=== PATIENT | male | born 1970 | race Caucasian/White ===

== ENCOUNTER 2020-11-02 18:13 | Inpatient (IN) | payer MEDICAID ==
[~2020-11-02] VITALS: Ht 172.7 cm; Wt 88.9 kg
[2020-11-03 02:35] VITALS: BP 150/92
[2020-11-03] MEDS ORDERED: LORazepam 2 MG TABLET PO PRN (04:00)
[2020-11-03] MEDS ORDERED: OLANZapine 5 MG RAPDIS TABLET PO PRN (04:00)
[2020-11-03] MEDS ORDERED: ZOLPIDEM TARTRATE 10 MG TABLET PO PRN (04:00)
[2020-11-03 06:24] VITALS: BP 143/89
[2020-11-03] MEDS ORDERED: INDOMETHACIN 50 MG CAPSULE PO PRN (07:00)
[2020-11-03 07:10] VITALS: BP 142/88
[2020-11-03] MEDS: INDOMETHACIN 50 MG CAPSULE PO PRN ×2 (07:10→17:58)
[2020-11-03 08:12] VITALS: BP 140/99
[2020-11-03] MEDS ORDERED: ACETAMINOPHEN 500 MG TABLET PO PRN (09:45)
[2020-11-03] MEDS ORDERED: LOPERAMIDE HCL 2 MG CAPSULE PO PRN (12:15)
[2020-11-03] MEDS ORDERED: TUBERCULIN, PURIFIED PROTEIN DERIVATIVE 5 TU/0.1 ML SYRINGE ID ONE (12:15)
[2020-11-03] MEDS ORDERED: MAG HYDROX/AL HYDROX/SIMETH ES 30 ML SUSPENSION UDCUP PO PRN (12:15)
[2020-11-03] MEDS ORDERED: MAGNESIUM HYDROXIDE SUSPENSION 30 ML UDCUP PO PRN (12:15)
[2020-11-03] MEDS ORDERED: HydrOXYzine PAMOATE 50 MG CAPSULE PO PRN (12:15)
[2020-11-03] MEDS ORDERED: GuaiFENesin/D-METHORPHAN [SUGAR-FREE] 200-20MG/10 ML SYRUP UDCUP PO PRN (12:15)
[2020-11-03 16:00] VITALS: BP 128/72
[2020-11-03 16:46] VITALS: BP 128/72
[2020-11-03] MEDS: THIAMINE 100 MG TABLET PO SCH (17:58)
[2020-11-03] MEDS ORDERED: QUEtiapine FUMARATE 100 MG TABLET PO PRN (19:15)
[2020-11-03] MEDS ORDERED: OLANZapine 5 MG RAPDIS TABLET PO SCH (21:00)
[2020-11-03] MEDS ORDERED: QUEtiapine FUMARATE 200 MG TABLET PO SCH (21:00)
[2020-11-03] MEDS: DIVALPROEX SODIUM 500 MG ER TABLET PO SCH (21:30)
[2020-11-03] MEDS: MELATONIN 5 MG TABLET PO SCH (21:30)
[2020-11-04 07:16] LABS: BASOPHILS % (AUTO) 0.5 % (0.0-2.0); EOSINOPHILS % (AUTO) 1.5 % (1.0-6.0); HEMATOCRIT 37.9 % (41-53); HEMOGLOBIN 12.8 g/dL (13.5-17.5); LYMPHOCYTES # (AUTO) 1.5 K/uL (1.0-4.8); LYMPHOCYTES % (AUTO) 30.6 % (22.0-44.0); MEAN CORPUSCULAR HEMOGLOBIN 30.8 pg (26.0-34.0); MEAN CORPUSCULAR HGB CONC 33.8 G/dL (31.0-37.0); MEAN CORPUSCULAR VOLUME 91 fL (80-100); MONOCYTES # (AUTO) 0.4 K/uL (0.1-1.0); MONOCYTES % (AUTO) 7.9 % (2.0-9.0); NEUTROPHILS # (AUTO) 2.9 K/uL (1.8-7.7); NEUTROPHILS % (AUTO) 59.5 % (40.0-70.0); PLATELET COUNT (AUTO) 125 K/uL (150-450); RED BLOOD CELL COUNT(AUTO) 4.17 MIL/uL (4.50-5.90); RED CELL DISTRIBUTION WIDTH 12.7 % (11.5-14.5)
[2020-11-04 07:18] LABS: HEMOGLOBIN A1C 5.9 % (3.8-5.6)
[2020-11-04 07:26] LABS: ANION GAP 7 mmol/L (8-16); CARBON DIOXIDE 29 mmol/L (22-29); CHLORIDE 104 mmol/L (98-107); POTASSIUM 3.9 mmol/L (3.5-5.1); SODIUM SERUM 140 mmol/L (136-145)
[2020-11-04 07:27] LABS: ALANINE AMINOTRANSFERASE 21 U/L (12-78); ALBUMIN 3.2 g/dL (3.4-5.0); ALKALINE PHOSPHATASE 74 U/L (46-116); ASPARTATE AMINOTRANSFERASE 8 U/L (15-37); BILIRUBIN,TOTAL 0.4 mg/dL (0.1-1.0); CALCIUM, TOTAL 8.2 mg/dL (8.8-10.5); CHOL/HDL RATIO 4.4 (4.2-7.3); CREATININE 0.93 mg/dL (0.60-1.30); FREE T4 (FREE THYROXINE) 1.46 ng/dL (0.76-1.46); GLOMERULAR FILTR. RATE CALC > 60 mL/min (>60); GLUCOSE,RANDOM 124 mg/dL (70-110); TOTAL PROTEIN, SERUM 6.7 g/dL (6.4-8.2); UREA NITROGEN, BLOOD 16 mg/dL (7-18)
[2020-11-04 08:13] LABS: CHOL/HDL RATIO 4.3 (4.2-7.3); THYROID STIMULATING HORMONE 0.47 uIU/mL (0.36-3.74)
[2020-11-04 08:22] LABS: URIC ACID 7.1 mg/dL (2.6-7.2)
[2020-11-04] MEDS: MULTIVITAMINS WITH MINERALS, THERAPEUTIC TABLET PO SCH (08:29)
[2020-11-04] MEDS: OMEGA-3/DHA/EPA/FISH OIL 1,000 MG CAPSULE PO SCH (08:29)
[2020-11-04] MEDS: FOLIC ACID 1 MG TABLET PO SCH (08:29)
[2020-11-04] MEDS: FLUoxetine HCL 20 MG CAPSULE PO SCH (08:29)
[2020-11-04] MEDS: THIAMINE 100 MG TABLET PO SCH ×2 (08:29→16:49)
[2020-11-04] MEDS: NALTREXONE HCL 50 MG TABLET PO SCH (08:29)
[2020-11-04 08:49] VITALS: BP 133/79
[2020-11-04 08:50] VITALS: BP 133/79
[2020-11-04] MEDS: INDOMETHACIN 50 MG CAPSULE PO PRN (08:54)
[2020-11-04 09:50] VITALS: BP 131/86
[2020-11-04] MEDS: ALLOPURINOL 100 MG TABLET PO SCH (13:28)
[2020-11-04 16:34] VITALS: BP 143/102
[2020-11-04] MEDS: DIVALPROEX SODIUM 500 MG ER TABLET PO SCH (20:59)
[2020-11-04] MEDS: MELATONIN 5 MG TABLET PO SCH (20:59)
[2020-11-04] MEDS ORDERED: QUEtiapine FUMARATE 200 MG TABLET PO SCH (21:00)
[2020-11-05] MEDS: FOLIC ACID 1 MG TABLET PO SCH (08:08)
[2020-11-05] MEDS: OMEGA-3/DHA/EPA/FISH OIL 1,000 MG CAPSULE PO SCH (08:08)
[2020-11-05] MEDS: THIAMINE 100 MG TABLET PO SCH ×2 (08:08→16:19)
[2020-11-05] MEDS: NALTREXONE HCL 50 MG TABLET PO SCH (08:08)
[2020-11-05] MEDS: ALLOPURINOL 100 MG TABLET PO SCH (08:08)
[2020-11-05] MEDS: FLUoxetine HCL 20 MG CAPSULE PO SCH (08:08)
[2020-11-05] MEDS: MULTIVITAMINS WITH MINERALS, THERAPEUTIC TABLET PO SCH (08:08)
[2020-11-05 08:51] VITALS: BP 140/99
[2020-11-05] MEDS ORDERED: CloNIDine HCL 0.1 MG TABLET PO PRN (12:45)
[2020-11-05 16:00] VITALS: BP 152/96
[2020-11-05] MEDS: DIVALPROEX SODIUM 500 MG ER TABLET PO SCH (20:29)
[2020-11-05] MEDS: MELATONIN 5 MG TABLET PO SCH (20:29)
[2020-11-05] MEDS ORDERED: QUEtiapine FUMARATE 300 MG TABLET PO SCH (21:00)
[2020-11-05] MEDS: ACETAMINOPHEN 325 MG TABLET PO PRN (22:36)
[2020-11-06] MEDS: OMEGA-3/DHA/EPA/FISH OIL 1,000 MG CAPSULE PO SCH (09:29)
[2020-11-06] MEDS: THIAMINE 100 MG TABLET PO SCH ×2 (09:30→17:06)
[2020-11-06] MEDS: ALLOPURINOL 100 MG TABLET PO SCH (09:30)
[2020-11-06] MEDS: NALTREXONE HCL 50 MG TABLET PO SCH (09:30)
[2020-11-06] MEDS: FOLIC ACID 1 MG TABLET PO SCH (09:30)
[2020-11-06] MEDS: FLUoxetine HCL 20 MG CAPSULE PO SCH (09:30)
[2020-11-06] MEDS: MULTIVITAMINS WITH MINERALS, THERAPEUTIC TABLET PO SCH (09:30)
[2020-11-06 16:46] VITALS: BP 144/84
[2020-11-06] MEDS: DIVALPROEX SODIUM 500 MG ER TABLET PO SCH (20:53)
[2020-11-06] MEDS: MELATONIN 5 MG TABLET PO SCH (20:54)
[2020-11-06] MEDS: QUEtiapine FUMARATE 200 MG TABLET PO SCH (20:54)
[2020-11-07] MEDS: THIAMINE 100 MG TABLET PO SCH ×2 (09:21→17:05)
[2020-11-07] MEDS: FOLIC ACID 1 MG TABLET PO SCH (09:21)
[2020-11-07] MEDS: OMEGA-3/DHA/EPA/FISH OIL 1,000 MG CAPSULE PO SCH (09:21)
[2020-11-07] MEDS: FLUoxetine HCL 20 MG CAPSULE PO SCH (09:22)
[2020-11-07] MEDS: MULTIVITAMINS WITH MINERALS, THERAPEUTIC TABLET PO SCH (09:22)
[2020-11-07] MEDS: NALTREXONE HCL 50 MG TABLET PO SCH (09:22)
[2020-11-07] MEDS: ALLOPURINOL 100 MG TABLET PO SCH (09:23)
[2020-11-07 16:15] VITALS: BP 140/93
[2020-11-07] MEDS: MELATONIN 5 MG TABLET PO SCH (20:22)
[2020-11-07] MEDS: DIVALPROEX SODIUM 500 MG ER TABLET PO SCH (21:24)
[2020-11-07] MEDS: QUEtiapine FUMARATE 200 MG TABLET PO SCH (21:24)
[2020-11-08 08:37] LABS: COVID AG,FIA SOURCE NASOPHARYNGEAL
[2020-11-08] MEDS: NALTREXONE HCL 50 MG TABLET PO SCH (09:00)
[2020-11-08] MEDS: OMEGA-3/DHA/EPA/FISH OIL 1,000 MG CAPSULE PO SCH (09:00)
[2020-11-08] MEDS: FOLIC ACID 1 MG TABLET PO SCH (09:01)
[2020-11-08] MEDS: THIAMINE 100 MG TABLET PO SCH ×2 (09:01→16:19)
[2020-11-08] MEDS: FLUoxetine HCL 20 MG CAPSULE PO SCH (09:01)
[2020-11-08] MEDS: MULTIVITAMINS WITH MINERALS, THERAPEUTIC TABLET PO SCH (09:01)
[2020-11-08] MEDS: ALLOPURINOL 100 MG TABLET PO SCH (09:02)
[2020-11-08 09:14] VITALS: BP 143/90
[2020-11-08 16:00] VITALS: BP 141/88
[2020-11-08] MEDS ORDERED: ChlorproMAZINE HCL 100 MG TABLET PO PRN (18:00)
[2020-11-08] MEDS: QUEtiapine FUMARATE 200 MG TABLET PO SCH (20:30)
[2020-11-08] MEDS: MELATONIN 5 MG TABLET PO SCH (20:30)
[2020-11-08] MEDS: DIVALPROEX SODIUM 500 MG ER TABLET PO SCH (20:30)
[2020-11-09] MEDS: FLUoxetine HCL 20 MG CAPSULE PO SCH (08:11)
[2020-11-09] MEDS: FOLIC ACID 1 MG TABLET PO SCH (08:11)
[2020-11-09] MEDS: OMEGA-3/DHA/EPA/FISH OIL 1,000 MG CAPSULE PO SCH (08:11)
[2020-11-09] MEDS: NALTREXONE HCL 50 MG TABLET PO SCH (08:11)
[2020-11-09] MEDS: THIAMINE 100 MG TABLET PO SCH ×2 (08:11→16:11)
[2020-11-09] MEDS: MULTIVITAMINS WITH MINERALS, THERAPEUTIC TABLET PO SCH (08:11)
[2020-11-09] MEDS: ALLOPURINOL 100 MG TABLET PO SCH (08:11)
[2020-11-09 20:00] VITALS: BP 154/104
[2020-11-09] MEDS: DIVALPROEX SODIUM 500 MG ER TABLET PO SCH (20:10)
[2020-11-09] MEDS: QUEtiapine FUMARATE 200 MG TABLET PO SCH (20:10)
[2020-11-09] MEDS: MELATONIN 5 MG TABLET PO SCH (20:17)
[2020-11-09] MEDS: CloNIDine HCL 0.1 MG TABLET PO PRN (20:19)
[2020-11-10] MEDS: FLUoxetine HCL 20 MG CAPSULE PO SCH (07:52)
[2020-11-10] MEDS: FOLIC ACID 1 MG TABLET PO SCH (07:52)
[2020-11-10] MEDS: ALLOPURINOL 100 MG TABLET PO SCH (07:52)
[2020-11-10] MEDS: AmLODIPine BESYLATE 2.5 MG TABLET PO SCH (07:52)
[2020-11-10] MEDS: OMEGA-3/DHA/EPA/FISH OIL 1,000 MG CAPSULE PO SCH (07:52)
[2020-11-10] MEDS: THIAMINE 100 MG TABLET PO SCH ×2 (07:52→17:40)
[2020-11-10] MEDS: NALTREXONE HCL 50 MG TABLET PO SCH (07:52)
[2020-11-10] MEDS: MULTIVITAMINS WITH MINERALS, THERAPEUTIC TABLET PO SCH (07:52)
[2020-11-10 09:00] VITALS: BP 132/87
[2020-11-10] MEDS: ACETAMINOPHEN 325 MG TABLET PO PRN (11:29)
[2020-11-10 16:05] VITALS: BP 143/90
[2020-11-10] MEDS: QUEtiapine FUMARATE 100 MG TABLET PO PRN (20:23)
[2020-11-10] MEDS: MELATONIN 5 MG TABLET PO SCH (20:23)
[2020-11-10] MEDS: DIVALPROEX SODIUM 500 MG ER TABLET PO SCH (20:23)
[2020-11-10] MEDS: QUEtiapine FUMARATE 200 MG TABLET PO SCH (21:37)
[2020-11-11 08:13] VITALS: BP 145/75
[2020-11-11] MEDS: FLUoxetine HCL 20 MG CAPSULE PO SCH (08:46)
[2020-11-11] MEDS: MULTIVITAMINS WITH MINERALS, THERAPEUTIC TABLET PO SCH (08:46)
[2020-11-11] MEDS: AmLODIPine BESYLATE 2.5 MG TABLET PO SCH (08:46)
[2020-11-11] MEDS: FOLIC ACID 1 MG TABLET PO SCH (08:46)
[2020-11-11] MEDS: THIAMINE 100 MG TABLET PO SCH ×2 (08:46→16:38)
[2020-11-11] MEDS: NALTREXONE HCL 50 MG TABLET PO SCH (08:46)
[2020-11-11] MEDS: ALLOPURINOL 100 MG TABLET PO SCH (08:46)
[2020-11-11] MEDS: OMEGA-3/DHA/EPA/FISH OIL 1,000 MG CAPSULE PO SCH (08:46)
[2020-11-11 19:43] VITALS: BP 143/92
[2020-11-11] MEDS: INDOMETHACIN 50 MG CAPSULE PO PRN (19:46)
[2020-11-11] MEDS: MELATONIN 5 MG TABLET PO SCH (20:41)
[2020-11-11] MEDS: QUEtiapine FUMARATE 200 MG TABLET PO SCH (20:41)
[2020-11-11] MEDS: DIVALPROEX SODIUM 500 MG ER TABLET PO SCH (20:41)
[2020-11-12 08:00] VITALS: BP 106/73
[2020-11-12] MEDS: MULTIVITAMINS WITH MINERALS, THERAPEUTIC TABLET PO SCH (09:42)
[2020-11-12] MEDS: OMEGA-3/DHA/EPA/FISH OIL 1,000 MG CAPSULE PO SCH (09:42)
[2020-11-12] MEDS: AmLODIPine BESYLATE 2.5 MG TABLET PO SCH (09:42)
[2020-11-12] MEDS: FLUoxetine HCL 20 MG CAPSULE PO SCH (09:42)
[2020-11-12] MEDS: THIAMINE 100 MG TABLET PO SCH ×2 (09:42→16:41)
[2020-11-12] MEDS: NALTREXONE HCL 50 MG TABLET PO SCH (09:42)
[2020-11-12] MEDS: FOLIC ACID 1 MG TABLET PO SCH (09:42)
[2020-11-12] MEDS: ALLOPURINOL 100 MG TABLET PO SCH (09:42)
[2020-11-12 16:35] VITALS: BP 135/87
[2020-11-12] MEDS: DIVALPROEX SODIUM 500 MG ER TABLET PO SCH (20:00)
[2020-11-12] MEDS: MELATONIN 5 MG TABLET PO SCH (20:01)
[2020-11-12] MEDS: QUEtiapine FUMARATE 200 MG TABLET PO SCH (22:47)
[2020-11-13] MEDS: MULTIVITAMINS WITH MINERALS, THERAPEUTIC TABLET PO SCH (09:10)
[2020-11-13] MEDS: NALTREXONE HCL 50 MG TABLET PO SCH (09:10)
[2020-11-13] MEDS: ALLOPURINOL 100 MG TABLET PO SCH (09:10)
[2020-11-13] MEDS: OMEGA-3/DHA/EPA/FISH OIL 1,000 MG CAPSULE PO SCH (09:10)
[2020-11-13] MEDS: AmLODIPine BESYLATE 2.5 MG TABLET PO SCH (09:10)
[2020-11-13] MEDS: FOLIC ACID 1 MG TABLET PO SCH (09:10)
[2020-11-13] MEDS: THIAMINE 100 MG TABLET PO SCH (09:10)
[2020-11-13] MEDS: FLUoxetine HCL 20 MG CAPSULE PO SCH (09:10)
[2020-11-13 12:39] VITALS: BP 145/88
[2020-11-13 16:19] VITALS: BP 142/82
[2020-11-13] MEDS: QUEtiapine FUMARATE 100 MG TABLET PO PRN (20:10)
[2020-11-13] MEDS: MELATONIN 5 MG TABLET PO SCH (20:10)
[2020-11-13] MEDS: DIVALPROEX SODIUM 500 MG ER TABLET PO SCH (20:10)
[2020-11-13] MEDS: QUEtiapine FUMARATE 200 MG TABLET PO SCH (21:45)
[2020-11-14] MEDS: AmLODIPine BESYLATE 2.5 MG TABLET PO SCH (09:07)
[2020-11-14] MEDS: MULTIVITAMINS WITH MINERALS, THERAPEUTIC TABLET PO SCH (09:07)
[2020-11-14] MEDS: NALTREXONE HCL 50 MG TABLET PO SCH (09:07)
[2020-11-14] MEDS: OMEGA-3/DHA/EPA/FISH OIL 1,000 MG CAPSULE PO SCH (09:07)
[2020-11-14] MEDS: ALLOPURINOL 100 MG TABLET PO SCH (09:08)
[2020-11-14] MEDS: FLUoxetine HCL 20 MG CAPSULE PO SCH (09:08)
[2020-11-14 09:58] VITALS: BP 145/103
[2020-11-14] MEDS: CloNIDine HCL 0.1 MG TABLET PO PRN (10:00)
[2020-11-14 11:31] VITALS: BP 132/94
[2020-11-14 16:21] VITALS: BP 140/96
[2020-11-14] MEDS: DIVALPROEX SODIUM 500 MG ER TABLET PO SCH (20:50)
[2020-11-14] MEDS: MELATONIN 5 MG TABLET PO SCH (20:50)
[2020-11-14] MEDS: QUEtiapine FUMARATE 200 MG TABLET PO SCH (20:50)
[2020-11-15] MEDS: OMEGA-3/DHA/EPA/FISH OIL 1,000 MG CAPSULE PO SCH (08:04)
[2020-11-15] MEDS: MULTIVITAMINS WITH MINERALS, THERAPEUTIC TABLET PO SCH (08:04)
[2020-11-15] MEDS: ALLOPURINOL 100 MG TABLET PO SCH (08:04)
[2020-11-15] MEDS: FLUoxetine HCL 20 MG CAPSULE PO SCH (08:04)
[2020-11-15] MEDS: AmLODIPine BESYLATE 2.5 MG TABLET PO SCH (08:04)
[2020-11-15] MEDS: NALTREXONE HCL 50 MG TABLET PO SCH (08:04)
[2020-11-15 08:49] VITALS: BP 127/94
[2020-11-15 12:38] LABS: COVID AG,FIA SOURCE NASOPHARYNGEAL
[2020-11-15 16:43] VITALS: BP 143/83
[2020-11-15] MEDS: DIVALPROEX SODIUM 500 MG ER TABLET PO SCH (20:29)
[2020-11-15] MEDS: QUEtiapine FUMARATE 200 MG TABLET PO SCH (20:29)
[2020-11-15] MEDS: MELATONIN 5 MG TABLET PO SCH (20:29)
[2020-11-16 06:51] VITALS: BP 138/91
[2020-11-16 07:01] LABS: BASOPHILS % (AUTO) 0.6 % (0.0-2.0); EOSINOPHILS % (AUTO) 2.5 % (1.0-6.0); HEMATOCRIT 38.6 % (41-53); HEMOGLOBIN 13.2 g/dL (13.5-17.5); LYMPHOCYTES # (AUTO) 1.7 K/uL (1.0-4.8); LYMPHOCYTES % (AUTO) 44.5 % (22.0-44.0); MEAN CORPUSCULAR HEMOGLOBIN 30.5 pg (26.0-34.0); MEAN CORPUSCULAR HGB CONC 34.2 G/dL (31.0-37.0); MEAN CORPUSCULAR VOLUME 89 fL (80-100); MONOCYTES # (AUTO) 0.3 K/uL (0.1-1.0); MONOCYTES % (AUTO) 7.6 % (2.0-9.0); NEUTROPHILS # (AUTO) 1.7 K/uL (1.8-7.7); NEUTROPHILS % (AUTO) 44.8 % (40.0-70.0); PLATELET COUNT (AUTO) 102 K/uL (150-450); RED BLOOD CELL COUNT(AUTO) 4.33 MIL/uL (4.50-5.90); RED CELL DISTRIBUTION WIDTH 12.5 % (11.5-14.5)
[2020-11-16 07:15] LABS: ALANINE AMINOTRANSFERASE 14 U/L (12-78); ALBUMIN 3.3 g/dL (3.4-5.0); ALKALINE PHOSPHATASE 66 U/L (46-116); ASPARTATE AMINOTRANSFERASE 7 U/L (15-37); BILIRUBIN,TOTAL 0.2 mg/dL (0.1-1.0); TOTAL PROTEIN, SERUM 6.5 g/dL (6.4-8.2); VALPROIC ACID 77 mcg/mL (50-100)
[2020-11-16 07:26] LABS: BILIRUBIN,DIRECT < 0.05 mg/dL (0.00-0.20)
[2020-11-16] MEDS: AmLODIPine BESYLATE 2.5 MG TABLET PO SCH (08:06)
[2020-11-16] MEDS: ALLOPURINOL 100 MG TABLET PO SCH (08:06)
[2020-11-16] MEDS: OMEGA-3/DHA/EPA/FISH OIL 1,000 MG CAPSULE PO SCH (08:06)
[2020-11-16] MEDS: FLUoxetine HCL 20 MG CAPSULE PO SCH (08:06)
[2020-11-16] MEDS: MULTIVITAMINS WITH MINERALS, THERAPEUTIC TABLET PO SCH (08:06)
[2020-11-16] MEDS: NALTREXONE HCL 50 MG TABLET PO SCH (08:06)
[2020-11-16 08:19] VITALS: BP 122/80
[2020-11-16] MEDS ORDERED: DIVA-80 PO (09:16)
[2020-11-16] MEDS ORDERED: NALT50TA PO (09:16)
[2020-11-16] MEDS ORDERED: OMEG-135 PO (09:16)
[2020-11-16] MEDS ORDERED: FLUO20CA36 PO (09:16)
[2020-11-16] MEDS ORDERED: MELA5TAB3 PO (09:16)
[2020-11-16] MEDS ORDERED: QUET200T29 PO (09:16)
[2020-11-16] MEDS ORDERED: ALLO100T2 PO (09:38)
[2020-11-16] MEDS ORDERED: AMLO2.5T96 PO (09:39)
== END 2020-11-16 10:15 | disposition home or self-care (01) | DRG 750 ==
LOC: 3EI 11-03 00:45
PROVIDERS: ADMIT Psychiatry & Neurology Psychiatry; ATTEND Psychiatry & Neurology Psychiatry
DX: F25.9 Schizoaffective disorder, unspecified (principal); E11.9 Type 2 diabetes mellitus without complications; I10 Essential (primary) hypertension; J44.9 Chronic obstructive pulmonary disease, unspecified; Z87.891 Personal history of nicotine dependence; M10.9 Gout, unspecified; F12.90 Cannabis use, unspecified, uncomplicated; F15.90 Other stimulant use, unspecified, uncomplicated; Z20.822 Contact with and (suspected) exposure to COVID-19; Z55.9 Problems related to education and literacy, unspecified; Z59.9 Problem related to housing and economic circumstances, unspecified; Z65.3 Problems related to other legal circumstances
CPT/HCPCS: 80053; 80061; 80074; 80076; 80164; 83036; 84439; 84443; 84550; 85025; 86592; 87426; 93005; A9575

== ENCOUNTER 2023-03-17 09:02 | Inpatient (IN) | payer MEDICAID ==
[~2023-03-17] VITALS: Ht 177.8 cm; Wt 86.7 kg
[~2023-03-17 09:02] MED LIST: ALLO-97 PO; AMLO2.5T96 PO; DIVA500T53 PO; FLUO20CA36 PO; MELA5TAB40 PO; NALT50TA PO; OMEG-135 PO; QUET200T30 PO
[2023-03-18] MEDS ORDERED: HALOPERIDOL 5 MG TABLET PO PRN (12:30)
[2023-03-18] MEDS ORDERED: ZOLPIDEM TARTRATE 10 MG TABLET PO PRN (12:30)
[2023-03-18 13:54] VITALS: BP 138/92; PULSE 94; RESP 18; TEMP 97.8; O2SAT 100
[2023-03-18] MEDS ORDERED: PNEUMOCOCCAL VACCINE POLYVALENT 0.5 ML SYRINGE [PPSV23] IM. ONE (15:00)
[2023-03-18 20:50] VITALS: BP 157/104; PULSE 89; RESP 19; TEMP 97.8; O2SAT 94
[2023-03-18] MEDS: LORazepam 2 MG TABLET PO PRN (21:11)
[2023-03-18 21:47] VITALS: BP 145/87; PULSE 75; RESP 18; O2SAT 95
[2023-03-19 08:22] VITALS: BP 130/91; PULSE 80; RESP 18; TEMP 98.1; O2SAT 96
[2023-03-19] MEDS ORDERED: ALLOPURINOL 100 MG TABLET PO SCH (09:00)
[2023-03-19] MEDS ORDERED: AmLODIPine BESYLATE 2.5 MG TABLET PO SCH (09:00)
[2023-03-19] MEDS: DIVALPROEX SODIUM 500 MG DR TABLET PO SCH ×2 (11:46→20:32)
[2023-03-19] MEDS: QUEtiapine FUMARATE 200 MG TABLET PO SCH ×2 (11:46→20:32)
[2023-03-19] MEDS ORDERED: ACETAMINOPHEN 325 MG TABLET PO PRN (15:00)
[2023-03-19] MEDS ORDERED: IBUPROFEN 400 MG TABLET PO PRN (15:00)
[2023-03-19] MEDS ORDERED: ALBUTEROL SULFATE HFA 90 MCG/PUFF 8 GM INHALER IH PRN (15:00)
[2023-03-19] MEDS ORDERED: CloNIDine HCL 0.1 MG TABLET PO PRN (15:00)
[2023-03-19] MEDS ORDERED: PETROLATUM,WHITE 28 GM JELLY TP PRN (15:00)
[2023-03-19] MEDS ORDERED: GuaiFENesin/D-METHORPHAN [SUGAR-FREE] 200-20MG/10 ML SYRUP UDCUP PO PRN (15:00)
[2023-03-19] MEDS ORDERED: NICOTINE 14 MG/24 HOUR PATCH TD PRN (15:00)
[2023-03-19] MEDS ORDERED: MAGNESIUM HYDROXIDE SUSPENSION 30 ML UDCUP PO PRN (15:00)
[2023-03-19] MEDS ORDERED: LOPERAMIDE HCL 2 MG CAPSULE PO PRN (15:00)
[2023-03-19] MEDS ORDERED: ONDANSETRON HCL 4 MG TABLET PO PRN (15:00)
[2023-03-19] MEDS ORDERED: MAG HYDROX/AL HYDROX/SIMETH ES 30 ML SUSPENSION UDCUP PO PRN (15:00)
[2023-03-19] MEDS ORDERED: DOCUSATE SODIUM 100 MG CAPSULE PO PRN (15:00)
[2023-03-19 20:38] VITALS: BP 141/91; PULSE 82; RESP 19; TEMP 97.8; O2SAT 98
[2023-03-20 08:04] LABS: HEMOGLOBIN A1C 6.6 % (3.8-5.6)
[2023-03-20 08:20] LABS: CHOL/HDL RATIO 5.1 (4.2-7.3)
[2023-03-20] MEDS: DIVALPROEX SODIUM 500 MG DR TABLET PO SCH ×2 (08:53→20:25)
[2023-03-20] MEDS: AmLODIPine BESYLATE 2.5 MG TABLET PO SCH (08:54)
[2023-03-20] MEDS: OMEGA-3/DHA/EPA/FISH OIL 1,000 MG CAPSULE PO SCH (08:54)
[2023-03-20] MEDS: ALLOPURINOL 100 MG TABLET PO SCH (08:54)
[2023-03-20] MEDS: QUEtiapine FUMARATE 200 MG TABLET PO SCH ×2 (08:54→20:25)
[2023-03-20 09:16] VITALS: BP 135/89; PULSE 86; RESP 18; TEMP 97.2; O2SAT 98
[2023-03-20 20:20] VITALS: BP 145/81; PULSE 89; RESP 18; TEMP 97.9; O2SAT 97
[2023-03-21 03:06] LABS: HEPATITIS C AB (EIA) Non Reactive (Non Reactive)
[2023-03-21 07:49] VITALS: BP 145/98; PULSE 89; RESP 18; TEMP 97.7; O2SAT 99
[2023-03-21 08:30] VITALS: BP 145/98; PULSE 89; RESP 18; TEMP 97.7; O2SAT 99
[2023-03-21] MEDS: ALLOPURINOL 100 MG TABLET PO SCH (09:22)
[2023-03-21] MEDS: DIVALPROEX SODIUM 500 MG DR TABLET PO SCH ×2 (09:22→20:19)
[2023-03-21] MEDS: QUEtiapine FUMARATE 200 MG TABLET PO SCH ×2 (09:22→20:19)
[2023-03-21] MEDS: AmLODIPine BESYLATE 2.5 MG TABLET PO SCH (09:22)
[2023-03-21] MEDS: OMEGA-3/DHA/EPA/FISH OIL 1,000 MG CAPSULE PO SCH (09:22)
[2023-03-21 16:18] VITALS: BP 124/76; PULSE 75; RESP 17; TEMP 98; O2SAT 98
[2023-03-21 20:15] VITALS: BP 124/76; PULSE 75; RESP 17; TEMP 98; O2SAT 98
[2023-03-22 08:28] VITALS: BP 111/66; PULSE 75; RESP 18; TEMP 97.6; O2SAT 98
[2023-03-22] MEDS: QUEtiapine FUMARATE 200 MG TABLET PO SCH (09:29)
[2023-03-22] MEDS: OMEGA-3/DHA/EPA/FISH OIL 1,000 MG CAPSULE PO SCH (09:30)
[2023-03-22] MEDS: DIVALPROEX SODIUM 500 MG DR TABLET PO SCH ×2 (09:30→20:45)
[2023-03-22] MEDS: AmLODIPine BESYLATE 2.5 MG TABLET PO SCH (09:30)
[2023-03-22] MEDS: ALLOPURINOL 100 MG TABLET PO SCH (09:30)
[2023-03-22 20:04] VITALS: BP 131/82; PULSE 99; RESP 18; TEMP 97.8; O2SAT 97
[2023-03-22] MEDS: QUEtiapine FUMARATE 300 MG TABLET PO SCH (20:44)
[2023-03-23 08:10] VITALS: BP 128/97; PULSE 83; RESP 17; TEMP 98.6; O2SAT 94
[2023-03-23] MEDS: OMEGA-3/DHA/EPA/FISH OIL 1,000 MG CAPSULE PO SCH (09:14)
[2023-03-23] MEDS: DIVALPROEX SODIUM 500 MG DR TABLET PO SCH ×2 (09:15→20:53)
[2023-03-23] MEDS: ALLOPURINOL 100 MG TABLET PO SCH (09:15)
[2023-03-23] MEDS: AmLODIPine BESYLATE 2.5 MG TABLET PO SCH (09:15)
[2023-03-23] MEDS: QUEtiapine FUMARATE 300 MG TABLET PO SCH ×2 (09:15→20:53)
[2023-03-23 20:43] VITALS: BP 136/95; PULSE 85; RESP 17; TEMP 98; O2SAT 99
[2023-03-24] MEDS: OMEGA-3/DHA/EPA/FISH OIL 1,000 MG CAPSULE PO SCH (08:05)
[2023-03-24] MEDS: AmLODIPine BESYLATE 2.5 MG TABLET PO SCH (08:05)
[2023-03-24] MEDS: DIVALPROEX SODIUM 500 MG DR TABLET PO SCH ×2 (08:05→20:38)
[2023-03-24] MEDS: QUEtiapine FUMARATE 300 MG TABLET PO SCH ×2 (08:05→20:38)
[2023-03-24] MEDS: ALLOPURINOL 100 MG TABLET PO SCH (08:06)
[2023-03-24 08:29] VITALS: BP 134/88; PULSE 86; RESP 19; TEMP 97.8; O2SAT 99
[2023-03-24 20:34] VITALS: BP 139/96; PULSE 87; RESP 18; TEMP 97.5; O2SAT 96
[2023-03-24] MEDS: LORazepam 2 MG TABLET PO PRN (20:38)
[2023-03-25] MEDS: AmLODIPine BESYLATE 2.5 MG TABLET PO SCH (08:16)
[2023-03-25] MEDS: ALLOPURINOL 100 MG TABLET PO SCH (08:16)
[2023-03-25] MEDS: QUEtiapine FUMARATE 300 MG TABLET PO SCH ×2 (08:16→20:11)
[2023-03-25] MEDS: OMEGA-3/DHA/EPA/FISH OIL 1,000 MG CAPSULE PO SCH (08:17)
[2023-03-25] MEDS: DIVALPROEX SODIUM 500 MG DR TABLET PO SCH ×2 (08:18→20:12)
[2023-03-25 08:53] VITALS: BP 106/64; PULSE 64; RESP 20; TEMP 98; O2SAT 99
[2023-03-25 20:02] VITALS: BP 133/79; PULSE 98; RESP 17; TEMP 97.8; O2SAT 99
[2023-03-26 08:11] VITALS: BP 137/93; PULSE 95; RESP 18; TEMP 97.7; O2SAT 100
[2023-03-26] MEDS: QUEtiapine FUMARATE 300 MG TABLET PO SCH ×2 (08:36→20:53)
[2023-03-26] MEDS: OMEGA-3/DHA/EPA/FISH OIL 1,000 MG CAPSULE PO SCH (08:36)
[2023-03-26] MEDS: DIVALPROEX SODIUM 500 MG DR TABLET PO SCH ×2 (08:36→20:53)
[2023-03-26] MEDS: ALLOPURINOL 100 MG TABLET PO SCH (08:36)
[2023-03-26] MEDS: AmLODIPine BESYLATE 2.5 MG TABLET PO SCH (08:36)
[2023-03-27 00:27] VITALS: BP 132/92; PULSE 82; RESP 17; TEMP 97.6; O2SAT 99
[2023-03-27] MEDS: QUEtiapine FUMARATE 300 MG TABLET PO SCH ×2 (08:18→20:18)
[2023-03-27] MEDS: OMEGA-3/DHA/EPA/FISH OIL 1,000 MG CAPSULE PO SCH (08:18)
[2023-03-27] MEDS: AmLODIPine BESYLATE 2.5 MG TABLET PO SCH (08:18)
[2023-03-27] MEDS: DIVALPROEX SODIUM 500 MG DR TABLET PO SCH ×2 (08:18→20:18)
[2023-03-27] MEDS: ALLOPURINOL 100 MG TABLET PO SCH (08:19)
[2023-03-27 10:03] VITALS: BP 131/88; PULSE 98; RESP 18; TEMP 98.1; O2SAT 98
[2023-03-27 20:14] VITALS: BP 135/83; PULSE 88; RESP 18; TEMP 97.5; O2SAT 98
[2023-03-28 08:10] VITALS: BP 119/64; PULSE 77; RESP 18; TEMP 97.5; O2SAT 98
[2023-03-28] MEDS: OMEGA-3/DHA/EPA/FISH OIL 1,000 MG CAPSULE PO SCH (08:48)
[2023-03-28] MEDS: QUEtiapine FUMARATE 300 MG TABLET PO SCH ×2 (08:48→20:04)
[2023-03-28] MEDS: ALLOPURINOL 100 MG TABLET PO SCH (08:48)
[2023-03-28] MEDS: AmLODIPine BESYLATE 2.5 MG TABLET PO SCH (08:48)
[2023-03-28] MEDS: DIVALPROEX SODIUM 500 MG DR TABLET PO SCH ×2 (08:48→20:04)
[2023-03-28 20:01] VITALS: BP 122/71; PULSE 80; RESP 18; TEMP 97.8
[2023-03-29 08:10] VITALS: BP 138/91; PULSE 81; RESP 19; TEMP 98.8; O2SAT 98
[2023-03-29] MEDS: QUEtiapine FUMARATE 300 MG TABLET PO SCH ×2 (08:29→20:04)
[2023-03-29] MEDS: OMEGA-3/DHA/EPA/FISH OIL 1,000 MG CAPSULE PO SCH (08:29)
[2023-03-29] MEDS: DIVALPROEX SODIUM 500 MG DR TABLET PO SCH ×2 (08:29→20:04)
[2023-03-29] MEDS: AmLODIPine BESYLATE 2.5 MG TABLET PO SCH (08:30)
[2023-03-29] MEDS: ALLOPURINOL 100 MG TABLET PO SCH (08:30)
[2023-03-29 20:10] VITALS: BP 142/95; PULSE 101; RESP 19; TEMP 98.6; O2SAT 98
[2023-03-29 20:21] VITALS: RESP 19
[2023-03-29 21:26] VITALS: RESP 18
[2023-03-30] MEDS: QUEtiapine FUMARATE 300 MG TABLET PO SCH ×2 (08:11→21:13)
[2023-03-30] MEDS: OMEGA-3/DHA/EPA/FISH OIL 1,000 MG CAPSULE PO SCH (08:11)
[2023-03-30] MEDS: DIVALPROEX SODIUM 500 MG DR TABLET PO SCH ×2 (08:11→21:13)
[2023-03-30 08:13] VITALS: BP 118/91; PULSE 84; RESP 18; TEMP 97.6; O2SAT 100
[2023-03-30] MEDS: ALLOPURINOL 100 MG TABLET PO SCH (08:13)
[2023-03-30] MEDS: AmLODIPine BESYLATE 2.5 MG TABLET PO SCH (09:06)
[2023-03-30 20:07] VITALS: BP 134/77; PULSE 72; RESP 18; TEMP 98.1; O2SAT 97
[2023-03-31 08:13] VITALS: BP 134/74; PULSE 63; RESP 19; TEMP 98; O2SAT 97
[2023-03-31] MEDS: DIVALPROEX SODIUM 500 MG DR TABLET PO SCH ×2 (08:52→20:13)
[2023-03-31] MEDS: QUEtiapine FUMARATE 300 MG TABLET PO SCH ×2 (08:52→20:13)
[2023-03-31] MEDS: ALLOPURINOL 100 MG TABLET PO SCH (08:52)
[2023-03-31] MEDS: OMEGA-3/DHA/EPA/FISH OIL 1,000 MG CAPSULE PO SCH (08:52)
[2023-03-31] MEDS: AmLODIPine BESYLATE 2.5 MG TABLET PO SCH (08:52)
[2023-03-31 20:16] VITALS: BP 143/102; PULSE 107; RESP 18; TEMP 97.8; O2SAT 100
[2023-04-01] MEDS: ALLOPURINOL 100 MG TABLET PO SCH (08:22)
[2023-04-01] MEDS: QUEtiapine FUMARATE 300 MG TABLET PO SCH ×2 (08:22→20:35)
[2023-04-01] MEDS: DIVALPROEX SODIUM 500 MG DR TABLET PO SCH ×2 (08:22→20:35)
[2023-04-01] MEDS: OMEGA-3/DHA/EPA/FISH OIL 1,000 MG CAPSULE PO SCH (08:22)
[2023-04-01] MEDS: AmLODIPine BESYLATE 2.5 MG TABLET PO SCH (08:22)
[2023-04-01 08:24] LABS: BASOPHILS % (AUTO) 0.7 % (0.0-2.0); EOSINOPHILS % (AUTO) 4.1 % (1.0-6.0); HEMATOCRIT 37.4 % (41-53); HEMOGLOBIN 12.9 g/dL (13.5-17.5); LYMPHOCYTES # (AUTO) 1.4 K/uL (1.0-4.8); LYMPHOCYTES % (AUTO) 40.2 % (22.0-44.0); MEAN CORPUSCULAR HEMOGLOBIN 29.7 pg (26.0-34.0); MEAN CORPUSCULAR HGB CONC 34.5 G/dL (31.0-37.0); MEAN CORPUSCULAR VOLUME 86 fL (80-100); MONOCYTES # (AUTO) 0.3 K/uL (0.1-1.0); MONOCYTES % (AUTO) 8.4 % (2.0-9.0); NEUTROPHILS # (AUTO) 1.6 K/uL (1.8-7.7); NEUTROPHILS % (AUTO) 46.6 % (40.0-70.0); PLATELET COUNT (AUTO) 90 K/uL (150-450); RED BLOOD CELL COUNT(AUTO) 4.34 MIL/uL (4.50-5.90); RED CELL DISTRIBUTION WIDTH 14.3 % (11.5-14.5); WHITE BLOOD COUNT (AUTO) 3.5 K/uL (4.5-11.0)
[2023-04-01 08:35] LABS: HEMOGLOBIN A1C 6.7 % (3.8-5.6)
[2023-04-01 08:39] LABS: ALANINE AMINOTRANSFERASE 21 U/L (12-78); ALBUMIN 3.1 g/dL (3.4-5.0); ALKALINE PHOSPHATASE 60 U/L (46-116); ANION GAP 4 mmol/L (8-16); ASPARTATE AMINOTRANSFERASE 13 U/L (15-37); BILIRUBIN,TOTAL 0.2 mg/dL (0.1-1.0); CALCIUM, TOTAL 8.3 mg/dL (8.8-10.5); CARBON DIOXIDE 30 mmol/L (22-29); CHLORIDE 105 mmol/L (98-107); CREATININE 0.88 mg/dL (0.60-1.30); GLOMERULAR FILTR. RATE CALC > 60 mL/min (>60); GLUCOSE,FASTING 126 mg/dL (70-110); GLUCOSE,RANDOM 126 mg/dL (70-110); SODIUM SERUM 139 mmol/L (136-145); TOTAL PROTEIN, SERUM 6.1 g/dL (6.4-8.2); UREA NITROGEN, BLOOD 12 mg/dL (7-18)
[2023-04-01 08:54] VITALS: BP 136/81; PULSE 76; RESP 17; TEMP 98.7; O2SAT 96
[2023-04-01 17:53] VITALS: BP 149/106; PULSE 86; RESP 17; TEMP 92.3; O2SAT 98
[2023-04-01 20:04] VITALS: BP 137/92; PULSE 98; RESP 18; TEMP 97.8; O2SAT 98
[2023-04-02 08:13] VITALS: BP 138/90; PULSE 95; RESP 18; TEMP 98.3; O2SAT 98
[2023-04-02] MEDS: OMEGA-3/DHA/EPA/FISH OIL 1,000 MG CAPSULE PO SCH (08:20)
[2023-04-02] MEDS: DIVALPROEX SODIUM 500 MG DR TABLET PO SCH ×2 (08:20→20:25)
[2023-04-02] MEDS: ALLOPURINOL 100 MG TABLET PO SCH (08:20)
[2023-04-02] MEDS: QUEtiapine FUMARATE 300 MG TABLET PO SCH ×2 (08:20→20:25)
[2023-04-02] MEDS: AmLODIPine BESYLATE 2.5 MG TABLET PO SCH (08:20)
[2023-04-02] MEDS: SERTRALINE HCL 50 MG TABLET PO SCH (10:50)
[2023-04-02 20:00] VITALS: BP 140/89; PULSE 89; RESP 18; TEMP 97.6; O2SAT 99
[2023-04-03 08:21] VITALS: BP 142/93; PULSE 90; RESP 18; TEMP 97.9; O2SAT 95
[2023-04-03] MEDS: QUEtiapine FUMARATE 300 MG TABLET PO SCH ×2 (08:22→20:15)
[2023-04-03] MEDS: SERTRALINE HCL 50 MG TABLET PO SCH (08:22)
[2023-04-03] MEDS: ALLOPURINOL 100 MG TABLET PO SCH (08:23)
[2023-04-03] MEDS: AmLODIPine BESYLATE 2.5 MG TABLET PO SCH (08:23)
[2023-04-03] MEDS: DIVALPROEX SODIUM 500 MG DR TABLET PO SCH ×2 (08:23→20:15)
[2023-04-03] MEDS: OMEGA-3/DHA/EPA/FISH OIL 1,000 MG CAPSULE PO SCH (08:23)
[2023-04-03 23:03] VITALS: BP 144/93; PULSE 75; RESP 17; TEMP 97.9; O2SAT 98
[2023-04-04 08:15] VITALS: BP 135/85; PULSE 66; RESP 18; TEMP 97.8; O2SAT 99
[2023-04-04] MEDS: OMEGA-3/DHA/EPA/FISH OIL 1,000 MG CAPSULE PO SCH (09:01)
[2023-04-04] MEDS: QUEtiapine FUMARATE 300 MG TABLET PO SCH ×2 (09:01→21:07)
[2023-04-04] MEDS: ALLOPURINOL 100 MG TABLET PO SCH (09:02)
[2023-04-04] MEDS: SERTRALINE HCL 50 MG TABLET PO SCH (09:02)
[2023-04-04] MEDS: DIVALPROEX SODIUM 500 MG DR TABLET PO SCH ×2 (09:02→21:07)
[2023-04-04] MEDS: AmLODIPine BESYLATE 2.5 MG TABLET PO SCH (09:42)
[2023-04-04 20:15] VITALS: BP 128/90; PULSE 84; RESP 19; TEMP 97.7; O2SAT 96
[2023-04-05 08:09] VITALS: BP 134/80; PULSE 66; RESP 17; TEMP 97.6; O2SAT 98
[2023-04-05] MEDS: ALLOPURINOL 100 MG TABLET PO SCH (08:42)
[2023-04-05] MEDS: AmLODIPine BESYLATE 2.5 MG TABLET PO SCH (08:42)
[2023-04-05] MEDS: DIVALPROEX SODIUM 500 MG DR TABLET PO SCH ×2 (08:42→20:21)
[2023-04-05] MEDS: OMEGA-3/DHA/EPA/FISH OIL 1,000 MG CAPSULE PO SCH (08:42)
[2023-04-05] MEDS: QUEtiapine FUMARATE 300 MG TABLET PO SCH ×2 (08:42→20:21)
[2023-04-05] MEDS: SERTRALINE HCL 50 MG TABLET PO SCH (08:42)
[2023-04-05 20:09] VITALS: BP 113/83; PULSE 75; RESP 18; TEMP 98.2; O2SAT 97
[2023-04-06 08:30] VITALS: BP 138/93; PULSE 83; RESP 19; TEMP 97.6; O2SAT 99
[2023-04-06] MEDS: DIVALPROEX SODIUM 500 MG DR TABLET PO SCH ×2 (08:37→20:32)
[2023-04-06] MEDS: QUEtiapine FUMARATE 300 MG TABLET PO SCH ×2 (08:37→20:32)
[2023-04-06] MEDS: ALLOPURINOL 100 MG TABLET PO SCH (08:38)
[2023-04-06] MEDS: AmLODIPine BESYLATE 2.5 MG TABLET PO SCH (08:38)
[2023-04-06] MEDS: SERTRALINE HCL 50 MG TABLET PO SCH (08:38)
[2023-04-06] MEDS: OMEGA-3/DHA/EPA/FISH OIL 1,000 MG CAPSULE PO SCH (08:38)
[2023-04-06 21:19] VITALS: BP 145/103; PULSE 18; RESP 15; TEMP 97.7; O2SAT 84
[2023-04-07] MEDS: QUEtiapine FUMARATE 300 MG TABLET PO SCH ×2 (09:14→20:34)
[2023-04-07] MEDS: ALLOPURINOL 100 MG TABLET PO SCH (09:14)
[2023-04-07] MEDS: OMEGA-3/DHA/EPA/FISH OIL 1,000 MG CAPSULE PO SCH (09:14)
[2023-04-07] MEDS: SERTRALINE HCL 50 MG TABLET PO SCH (09:14)
[2023-04-07] MEDS: AmLODIPine BESYLATE 2.5 MG TABLET PO SCH (09:15)
[2023-04-07] MEDS: DIVALPROEX SODIUM 500 MG DR TABLET PO SCH ×2 (09:15→20:34)
[2023-04-07] MEDS ORDERED: SERTRALINE HCL 50 MG TABLET PO ONE (09:45)
[2023-04-07 10:31] VITALS: BP 143/96; PULSE 90; RESP 16; TEMP 97; O2SAT 97
[2023-04-07 20:04] VITALS: BP 137/94; PULSE 87; RESP 18; TEMP 97.9; O2SAT 98
[2023-04-08 08:02] VITALS: BP 123/78; PULSE 89; RESP 16; O2SAT 98
[2023-04-08] MEDS: QUEtiapine FUMARATE 300 MG TABLET PO SCH ×2 (08:05→20:06)
[2023-04-08] MEDS: AmLODIPine BESYLATE 2.5 MG TABLET PO SCH (08:05)
[2023-04-08] MEDS: DIVALPROEX SODIUM 500 MG DR TABLET PO SCH ×2 (08:05→20:06)
[2023-04-08] MEDS: ALLOPURINOL 100 MG TABLET PO SCH (08:05)
[2023-04-08] MEDS: SERTRALINE HCL 50 MG TABLET PO SCH (08:05)
[2023-04-08] MEDS: OMEGA-3/DHA/EPA/FISH OIL 1,000 MG CAPSULE PO SCH (08:05)
[2023-04-08 20:29] VITALS: BP 138/82; PULSE 72; RESP 18; TEMP 98.3; O2SAT 97
[2023-04-09 08:07] VITALS: BP 137/83; PULSE 62; RESP 18; TEMP 97.6; O2SAT 96
[2023-04-09] MEDS: ALLOPURINOL 100 MG TABLET PO SCH (09:00)
[2023-04-09] MEDS: SERTRALINE HCL 50 MG TABLET PO SCH (09:04)
[2023-04-09] MEDS: QUEtiapine FUMARATE 300 MG TABLET PO SCH ×2 (09:04→21:16)
[2023-04-09] MEDS: AmLODIPine BESYLATE 2.5 MG TABLET PO SCH (09:04)
[2023-04-09] MEDS: OMEGA-3/DHA/EPA/FISH OIL 1,000 MG CAPSULE PO SCH (09:04)
[2023-04-09] MEDS: DIVALPROEX SODIUM 500 MG DR TABLET PO SCH ×2 (09:04→21:16)
[2023-04-09 22:04] VITALS: BP 138/80; PULSE 83; RESP 18; TEMP 98; O2SAT 95
[2023-04-10] MEDS: SERTRALINE HCL 50 MG TABLET PO SCH (08:33)
[2023-04-10] MEDS: ALLOPURINOL 100 MG TABLET PO SCH (08:33)
[2023-04-10] MEDS: QUEtiapine FUMARATE 300 MG TABLET PO SCH ×2 (08:33→20:22)
[2023-04-10] MEDS: DIVALPROEX SODIUM 500 MG DR TABLET PO SCH ×2 (08:33→20:22)
[2023-04-10] MEDS: OMEGA-3/DHA/EPA/FISH OIL 1,000 MG CAPSULE PO SCH (08:33)
[2023-04-10] MEDS: AmLODIPine BESYLATE 2.5 MG TABLET PO SCH (08:33)
[2023-04-10 09:27] VITALS: BP 123/90; PULSE 85; RESP 17; TEMP 98; O2SAT 96
[2023-04-10 20:05] VITALS: BP 132/76; PULSE 92; RESP 18; TEMP 98.1; O2SAT 97
[2023-04-11 08:13] VITALS: BP 120/67; PULSE 68; RESP 18; TEMP 97.7; O2SAT 100
[2023-04-11] MEDS: DIVALPROEX SODIUM 500 MG DR TABLET PO SCH ×2 (09:43→20:38)
[2023-04-11] MEDS: OMEGA-3/DHA/EPA/FISH OIL 1,000 MG CAPSULE PO SCH (09:43)
[2023-04-11] MEDS: SERTRALINE HCL 50 MG TABLET PO SCH (09:44)
[2023-04-11] MEDS: QUEtiapine FUMARATE 300 MG TABLET PO SCH ×2 (09:44→20:38)
[2023-04-11] MEDS: AmLODIPine BESYLATE 2.5 MG TABLET PO SCH (09:44)
[2023-04-11] MEDS: ALLOPURINOL 100 MG TABLET PO SCH (09:44)
[2023-04-11 20:45] VITALS: RESP 19
[2023-04-12 08:17] VITALS: BP 140/88; PULSE 79; RESP 18; TEMP 97.7; O2SAT 96
[2023-04-12] MEDS: OMEGA-3/DHA/EPA/FISH OIL 1,000 MG CAPSULE PO SCH (08:37)
[2023-04-12] MEDS: ALLOPURINOL 100 MG TABLET PO SCH (08:37)
[2023-04-12] MEDS: DIVALPROEX SODIUM 500 MG DR TABLET PO SCH ×2 (08:37→21:01)
[2023-04-12] MEDS: AmLODIPine BESYLATE 2.5 MG TABLET PO SCH (08:37)
[2023-04-12] MEDS: QUEtiapine FUMARATE 300 MG TABLET PO SCH ×2 (08:38→21:01)
[2023-04-12] MEDS: SERTRALINE HCL 50 MG TABLET PO SCH (08:38)
[2023-04-12] MEDS ORDERED: OMEG-135 PO (18:48)
[2023-04-12] MEDS ORDERED: AMLO2.5T96 PO (18:48)
[2023-04-12] MEDS ORDERED: DIVA-112 PO (18:48)
[2023-04-12] MEDS ORDERED: SERT-162 PO (18:48)
[2023-04-12] MEDS ORDERED: QUET300T19 PO (18:48)
[2023-04-12] MEDS ORDERED: ALLO-97 PO (18:48)
[2023-04-12 20:33] VITALS: BP 139/90; PULSE 86; RESP 17; TEMP 97.7; O2SAT 99
== END 2023-04-13 07:30 | disposition home or self-care (01) | DRG 750 ==
LOC: B2S 03-18 12:24
PROVIDERS: ADMIT Psychiatry & Neurology Psychiatry; ATTEND Psychiatry & Neurology Psychiatry
DX: F25.0 Schizoaffective disorder, bipolar type (principal); R45.851 Suicidal ideations; E78.5 Hyperlipidemia, unspecified; I10 Essential (primary) hypertension; F12.10 Cannabis abuse, uncomplicated; F15.10 Other stimulant abuse, uncomplicated; M10.9 Gout, unspecified; R73.03 Prediabetes; Z59.00 Homelessness unspecified; Z79.899 Other long term (current) drug therapy
CPT/HCPCS: 80053; 80061; 80164; 82947; 83036; 84443; 85025; 86803; 87340